=== PATIENT | male | born 2000 | race Caucasian/White ===

== ENCOUNTER 2022-04-02 14:36 | Emergency (ER) | payer BC, MEDICAID ==
[2022-04-02 14:48] VITALS: BP_SYST 116
[2022-04-02 16:00] LABS: BASOPHILS % (AUTO) 0.6 % (0.0-2.0); EOSINOPHILS # (AUTO) 0.1 K/uL (0.0-0.4); EOSINOPHILS % (AUTO) 0.8 % (0.0-4.0); HEMATOCRIT 42.1 % (36-54); HEMOGLOBIN 14.3 g/dL (14.0-18.0); LYMPHOCYTES # (AUTO) 1.4 K/uL (1.0-5.5); LYMPHOCYTES % (AUTO) 21.9 % (20.5-51.5); MEAN CORPUSCULAR HEMOGLOBIN 31 pg (27-31); MEAN CORPUSCULAR HGB CONC 34 % (32-36); MEAN CORPUSCULAR VOLUME 90 fL (79.0-98.0); MONOCYTES # (AUTO) 0.5 K/uL (0.0-1.0); NEUTROPHILS # (AUTO) 4.6 K/uL (1.8-7.7); NEUTROPHILS % (AUTO) 69.7 % (40.0-70.0); PLATELET COUNT (AUTO) 234 K/uL (130-430); RED BLOOD CELL COUNT(AUTO) 4.66 MIL/uL (4.2-6.2); RED CELL DISTRIBUTION WIDTH 12.9 % (9.0-15.0); WHITE BLOOD COUNT (AUTO) 6.6 K/uL (4.8-10.8)
[2022-04-02 16:13] LABS: ANION GAP 14 (5-15); CALCIUM 9.4 mg/dL (8.4-11.0); CHLORIDE 100 mmol/L (98-107); CREATININE 0.39 mg/dL (0.55-1.30); GLUCOSE 79 mg/dL (70-99); UREA NITROGEN, BLOOD 7 mg/dL (8-21)
[2022-04-02 16:14] LABS: GFR AFRICAN AMERICAN 356 mL/min (>90)
[2022-04-02] MEDS ORDERED: ONDANSETRON 4 MG ODT TAB PO ONE (16:15)
[2022-04-02 16:17] LABS: ALANINE AMINOTRANSFERASE 33 U/L (12-78); ALBUMIN 3.9 g/dL (3.4-4.8); AMYLASE 22 U/L (0-100); ASPARTATE AMINOTRANSFERASE 21 U/L (10-37); C-REACTIVE PROTEIN QUANT 0.9 mg/dL (0-0.5); LACTATE DEHYDROGENASE 128 U/L (85-227); LIPASE 48 U/L (73-393); TOTAL BILIRUBIN 0.5 mg/dL (0.0-1.0)
[2022-04-02 16:35] LABS: ACETONE, SERUM MODERATE (NEGATIVE)
[2022-04-02] MEDS ORDERED: ONDA-8 TL (17:35)
[2022-04-02 19:18] VITALS: BP_SYST 116
== END 2022-04-02 19:18 | disposition home or self-care (01) ==
LOC: SED 14:36
DX: R11.10 Vomiting, unspecified (principal); Z91.018 Allergy to other foods; Z79.899 Other long term (current) drug therapy
CPT/HCPCS: 99283; 80053; 82009; 82150; 83615; 83690; 85025; 86140; 36415; 83605; Q0162

== ENCOUNTER 2022-10-07 11:32 | Emergency (ER) | payer BC, MEDICAID ==
[~2022-10-07] VITALS: Ht 167.6 cm; Wt 54.9 kg
[~2022-10-07 11:32] MED LIST: ONDA-8 TL
[2022-10-07] MEDS ORDERED: LORazepam 2 MG/ML VIAL IVP ONE ×2 (12:15→14:30)
[2022-10-07 12:43] VITALS: BP_SYST 120; PULSE 84; RESP 20; TEMP 98; O2SAT 98
[2022-10-07 12:44] LABS: BASOPHILS # (AUTO) 0.1 K/uL (0.0-0.2); BASOPHILS % (AUTO) 0.5 % (0.0-2.0); EOSINOPHILS # (AUTO) 0.1 K/uL (0.0-0.4); HEMATOCRIT 41.3 % (36-54); HEMOGLOBIN 13.9 g/dL (14.0-18.0); LYMPHOCYTES # (AUTO) 1.2 K/uL (1.0-5.5); LYMPHOCYTES % (AUTO) 11.5 % (20.5-51.5); MEAN CORPUSCULAR HEMOGLOBIN 30 pg (27-31); MEAN CORPUSCULAR HGB CONC 34 % (32-36); MEAN CORPUSCULAR VOLUME 88 fL (79.0-98.0); MONOCYTES # (AUTO) 0.8 K/uL (0.0-1.0); MONOCYTES % (AUTO) 7.8 % (1.7-9.3); NEUTROPHILS # (AUTO) 8.5 K/uL (1.8-7.7); NEUTROPHILS % (AUTO) 79.2 % (40.0-70.0); PLATELET COUNT (AUTO) 240 K/uL (130-430); RED BLOOD CELL COUNT(AUTO) 4.68 MIL/uL (4.2-6.2); WHITE BLOOD COUNT (AUTO) 10.8 K/uL (4.8-10.8)
[2022-10-07] MEDS ORDERED: levETIRAcetam 1,000 MG in NS 90 ML IV ONE (12:45)
[2022-10-07 12:56] LABS: CALCIUM 9.1 mg/dL (8.4-11.0); CREATININE 0.35 mg/dL (0.55-1.30)
[2022-10-07 13:01] LABS: ALBUMIN 3.9 g/dL (3.4-4.8); TOTAL BILIRUBIN 0.4 mg/dL (0.0-1.0)
[2022-10-07] MEDS ORDERED: LORA-259 PO (15:12)
== END 2022-10-07 15:30 | disposition home or self-care (01) ==
LOC: SED 11:32
DX: R56.9 Unspecified convulsions (principal); Z91.018 Allergy to other foods; Z79.899 Other long term (current) drug therapy
CPT/HCPCS: 99285; 96365; 70450; 96375; 80053; 85025; 36415; 76376; 96376; 83605; J1953; J2060